=== PATIENT | female | born 1980 | race Caucasian/White ===

== ENCOUNTER 2020-10-10 08:55 | Outpatient (CLI) | payer MEDICAID ==
[~2020-10-10] VITALS: Ht 160 cm; Wt 100.0 kg
[2020-10-10 10:00] VITALS: BP 118/86; PULSE 94; TEMP 98.4
[2020-10-10 10:21] LABS: HEMATOCRIT 39.6 % (37.0-47.0); HEMOGLOBIN 12.8 g/dl (12.5-16.0); MEAN CELL VOLUME 95 fl (80.0-100.0); MEAN CORPUSCULAR HEMOGLOBIN 31 pg (27.0-31.0); MEAN CORPUSCULAR HGB CONC 32 g/dl (33.0-37.0); MEAN PLATELET VOLUME 11.6 fl (7.4-10.4); PLATELET COUNT 250 K/mm3 (130-400); RED BLOOD COUNT 4.17 M/mm3 (4.10-5.30); REDCELL DISTRIBUTION WIDTH-CV 12.8 % (11.5-14.5)
[2020-10-10 10:34] LABS: CALCIUM 9.9 mg/dL (8.4-10.2); CREATININE, serum 1.01 (0.52-1.25); POTASSIUM 4.3 mmol/L (3.4-5.0)
[2020-10-10 10:36] LABS: PROTHROMBIN TIME 11.7 SECONDS (9.7-12.8)
[2020-10-10] MEDS ORDERED: PLAVIX 75MG TAB75 MG PO (10:48)
[2020-10-10] MEDS ORDERED: ASPIRIN E.C. 8181 MG PO (10:49)
[2020-10-10] MEDS ORDERED: LIPITOR 40MG TA40 MG PO (10:49)
[2020-10-10] MEDS ORDERED: ZESTRIL 20MG TA20 MG PO (10:50)
[2020-10-10] MEDS ORDERED: RISPERDAL3 MG PO (10:50)
[2020-10-10] MEDS ORDERED: PROZAC40 MG PO (10:51)
[2020-10-10] MEDS ORDERED: WELLBUTRIN XL150 MG PO (10:52)
[2020-10-10] MEDS ORDERED: XANAX XR3 MG PO (10:52)
[2020-10-10] MEDS ORDERED: MELATONIN5 M1 SL (10:53)
[2020-10-10] MEDS ORDERED: TYLENOL 325MG325 MG PO (10:54)
[2020-10-10 12:00] VITALS: BP 120/55; PULSE 78
--- NOTE | 2020-10-10 12:00 | NUR ---
pt is sitting up in bed, talking to mom, awake and alert, had cough earlier, no cough at this time. no c/o pain or SOB.
[2020-10-10 12:15] VITALS: BP 113/58; PULSE 80
--- NOTE | 2020-10-10 12:15 | NUR ---
sips on water. reviewed discharge inst. with pt and mom. reviewed no driving, no alcohol today due to moderate sedation. pt will make own 2 week appt in [place] and schedule it according to her speech thereapy she recieved. no new meds or RX today. iv dc'd intact.
[2020-10-10 12:30] VITALS: BP 122/66; PULSE 81
--- NOTE | 2020-10-10 12:30 | NUR ---
pt up in room, dressed. discharged via w/c to car with mom and papers
[2021-06-02] MEDS ORDERED: NORCO 325 MG-51 TAB PO (12:26)
== END 2020-10-10 12:30 | disposition home or self-care (01) ==
LOC: COL.RAD 08:55
PROVIDERS: Internal Medicine Cardiovascular Disease
DX: I63.9 Cerebral infarction, unspecified (principal); Z20.822 Contact with and (suspected) exposure to COVID-19; Z79.899 Other long term (current) drug therapy; Z79.02 Long term (current) use of antithrombotics/antiplatelets; Z79.82 Long term (current) use of aspirin
CPT/HCPCS: J2704

== ENCOUNTER 2021-06-01 18:10 | Emergency (ER) | payer MEDICAID ==
[~2021-06-01] VITALS: Ht 160 cm; Wt 90.9 kg
[~2021-06-01 18:10] MED LIST: ASPIRIN E.C. 8181 MG PO; LIPITOR 40MG TA40 MG PO; MELATONIN5 M1 SL; PLAVIX 75MG TAB75 MG PO; PROZAC40 MG PO; RISPERDAL3 MG PO; TYLENOL 325MG325 MG PO; WELLBUTRIN XL150 MG PO; XANAX XR3 MG PO; ZESTRIL 20MG TA20 MG PO
[2021-06-01 20:43] LABS: COLLECTION METHOD CLEAN CATCH
[2021-06-01 20:47] LABS: BASO % 0.3 % (0.0-2.0); EOS # 0.2 K/mm3 (0.0-0.7); EOS % 1.4 % (0-4.0); GRAN # 7.2 K/mm3 (1.4-6.5); GRAN % 62.3 % (42.2-75.2); HEMATOCRIT 40.1 % (37.0-47.0); HEMOGLOBIN 13.3 g/dl (12.5-16.0); LYMPH # 2.8 K/mm3 (1.2-3.4); LYMPH % 24.1 % (20.0-51.0); MEAN CELL VOLUME 96 fl (80.0-100.0); MEAN CORPUSCULAR HEMOGLOBIN 32 pg (27.0-31.0); MEAN CORPUSCULAR HGB CONC 33 g/dl (33.0-37.0); MEAN PLATELET VOLUME 11.5 fl (7.4-10.4); MONO # 1.4 K/mm3 (0.1-0.6); MONO % 11.7 % (1.7-9.3); PLATELET COUNT 268 K/mm3 (130-400); RED BLOOD COUNT 4.18 M/mm3 (4.10-5.30); REDCELL DISTRIBUTION WIDTH-CV 14.8 % (11.5-14.5)
[2021-06-01 20:50] LABS: MUCOUS Present /lpf; PH 5 (5-8); SQUAMOUS EPITHELIAL 0-2 /hpf; URINE APPEARANCE Hazy; URINE BACTERIA Rare /hpf; URINE BILIRUBIN Negative (NEGATIVE); URINE BLOOD Negative (NEGATIVE); URINE COLOR Yellow; URINE GLUCOSE Negative (NEGATIVE); URINE KETONE Negative (NEGATIVE); URINE LEUKOCYTE ESTERASE Negative (NEGATIVE); URINE NITRATE Negative (NEGATIVE); URINE PROTEIN(semi-quant) Negative (NEGATIVE); URINE RBC 0-2 /hpf; URINE UROBILINOGEN Negative (NEGATIVE)
[2021-06-01 21:06] LABS: ALBUMIN 3.5 gm/dL (3.5-5.0); BILIRUBIN,TOTAL 0.4 mg/dL (0.2-1.2); CALCIUM 8.8 mg/dL (8.4-10.2); CREATININE, serum 0.95 mg/dL (0.57-1.11); POTASSIUM 3.9 mmol/L (3.5-4.5); TOTAL PROTEIN 6.7 gm/dL (6.2-8.1)
[2021-06-01] MEDS ORDERED: ZOFRAN ODT4 MG PO (22:57)
[2021-06-01] MEDS ORDERED: NORCO 325 MG-51 TAB PO (23:04)
[2021-06-01 23:50] VITALS: BP 129/61; PULSE 75; TEMP 98.1
[2021-06-02] MEDS ORDERED: NORCO 325 MG-51 TAB PO (12:26)
== END 2021-06-01 23:50 ==
LOC: COL.ER 18:10
PROVIDERS: Personal Emergency Response Attendant
DX: R10.9 Unspecified abdominal pain (principal); Z87.891 Personal history of nicotine dependence
CPT/HCPCS: J2270; J2405; J7030; Q9967

== ENCOUNTER 2021-09-04 18:35 | Emergency (ER) | payer MEDICAID ==
[~2021-09-04] VITALS: Ht 160 cm; Wt 104.5 kg
[~2021-09-04 18:35] MED LIST changes: +NORCO 325 MG-51 TAB PO; +ZOFRAN ODT4 MG PO
[2021-09-04 18:44] VITALS: TEMP 98.1
[2021-09-04 19:55] LABS: ALANINE AMINOTRANSFERASE 35 U/L (0-55); ALBUMIN 4.2 gm/dL (3.5-5.0); ALKALINE PHOSPHATASE 98 U/L (40-150); ANION GAP 13 mmol/L (7-16); AST,SGOT 32 U/L (5-34); BILIRUBIN,TOTAL 0.5 mg/dL (0.2-1.2); BLOOD UREA NITROGEN 12 mg/dL (7-19); C-REACTIVE PROTEIN 0.75 mg/dL (0.00-0.50); CALCIUM 9.5 mg/dL (8.4-10.2); CARBON DIOXIDE 21 mmol/L (22-29); CHLORIDE 104 mmol/L (98-107); GLUCOSE 99 mg/dL (70-99); LIPASE 27 U/L (8-78); POTASSIUM 3.8 mmol/L (3.5-4.5); SODIUM 138 mmol/L (136-145); TOTAL PROTEIN 7.7 gm/dL (6.2-8.1)
[2021-09-04 19:58] LABS: BASO # 0.1 K/mm3 (0.0-0.2); BASO % 0.7 % (0.0-2.0); EOS # 0.2 K/mm3 (0.0-0.7); EOS % 2.2 % (0.0-4.0); GRAN % 64.6 % (42.2-75.2); HEMATOCRIT 39.5 % (37.0-47.0); HEMOGLOBIN 12.9 g/dl (12.5-16.0); LYMPH # 2.1 K/mm3 (1.2-3.4); LYMPH % 23.3 % (20.0-51.0); MEAN CELL VOLUME 96 fl (80.0-100.0); MEAN CORPUSCULAR HEMOGLOBIN 31 pg (27-31); MEAN CORPUSCULAR HGB CONC 33 g/dl (33.0-37.0); MEAN PLATELET VOLUME 11.4 fl (7.4-10.4); MONO # 0.8 K/mm3 (0.1-0.6); MONO % 8.9 % (1.7-9.3); PLATELET COUNT 289 K/mm3 (130-400); RED BLOOD COUNT 4.12 M/mm3 (4.10-5.30); REDCELL DISTRIBUTION WIDTH-CV 14.1 % (11.5-14.5)
[2021-09-04 20:06] LABS: TROPONIN-I < 0.010 ng/mL (0.00-0.033)
[2021-09-04 20:17] LABS: COLLECTION METHOD CLEAN CATCH
[2021-09-04 20:25] LABS: MUCOUS Present (NOT PRESENT); SQUAMOUS EPITHELIAL 0-2 /hpf (0-10); URINE BACTERIA None Seen /hpf (NONE SEEN); URINE RBC 0-2 /hpf (0-2)
[2021-09-04 20:26] LABS: PH 5 (5-8); URINE APPEARANCE Clear (CLEAR/HAZY); URINE BILIRUBIN Negative (NEGATIVE); URINE BLOOD 2+ (NEGATIVE); URINE COLOR Yellow (YELLOW); URINE GLUCOSE Negative (NEGATIVE); URINE KETONE Negative (NEGATIVE); URINE LEUKOCYTE ESTERASE Negative (NEGATIVE); URINE NITRATE Negative (NEGATIVE); URINE PROTEIN(semi-quant) Negative (NEGATIVE); URINE UROBILINOGEN Negative (NEGATIVE)
[2021-09-04 21:34] VITALS: BP 136/78; PULSE 93
== END 2021-09-04 21:32 | disposition home or self-care (01) ==
LOC: COL.ER 18:35
PROVIDERS: Nurse Practitioner Primary Care; Personal Emergency Response Attendant
DX: R20.2 Paresthesia of skin (principal); I25.10 Atherosclerotic heart disease of native coronary artery without angina pectoris; I10 Essential (primary) hypertension; E78.5 Hyperlipidemia, unspecified; I25.2 Old myocardial infarction; Z86.73 Personal history of transient ischemic attack (TIA), and cerebral infarction without residual deficits; Z87.891 Personal history of nicotine dependence; Z79.82 Long term (current) use of aspirin; Z79.02 Long term (current) use of antithrombotics/antiplatelets; Z79.899 Other long term (current) drug therapy